=== PATIENT | male | born 1940 | race Caucasian/White ===

== ENCOUNTER → 2022-05-04 | Outpatient (CLI) | payer MEDICARE ==
[2022-05-04 12:26] LABS: INR 1.89
== END ==
LOC: M LAB 11:30
DX: I48.0 Paroxysmal atrial fibrillation (principal)

== ENCOUNTER → 2022-05-28 | Outpatient (CLI) | payer MEDICARE ==
[2022-05-28 16:52] LABS: INR 2.01; PROTHROMBIN TIME 23.1 SECONDS (12.5-14.5)
== END ==
LOC: M LAB 16:14
DX: I48.0 Paroxysmal atrial fibrillation (principal)

== ENCOUNTER → 2022-07-03 | Outpatient (CLI) | payer MEDICARE ==
[2022-07-03 09:02] LABS: INR 2.28; PROTHROMBIN TIME 25.5 SECONDS (12.5-14.5)
== END ==
LOC: M LAB 07:47
DX: I48.0 Paroxysmal atrial fibrillation (principal)